=== PATIENT | female | born 1990 | race Caucasian/White ===

== ENCOUNTER 2019-01-09 04:48 | Emergency (ER) | payer SELFPAY ==
[2019-01-09] MEDS ORDERED: DEXAMETHASONE SOD PHOS INJ 10 MG/1 ML VIAL IM ONE (06:50)
--- NOTE | 2019-01-09 06:51 | ER Document Report ---
ED General - General Chief Complaint: Allergic Reaction Stated Complaint: RASH Time Seen by Provider: 01/09/19 06:32 Mode of Arrival: Ambulatory Notes: 28 year old with rash since earlier in Dec. Taking benadryl without relief. No fever or chills. No tick bite. H/o bad seasonal allergies and eczema and asthma. Asthma well controlled lately. TRAVEL OUTSIDE OF THE [place] IN LAST 30 DAYS: No - HPI Patient complains to provider of: rash Onset: Other - 2 weeks Quality of pain: No pain, Burning Severity: Moderate Pain Level: 2 Associated symptoms: Allergy/hay fever. denies: Earache, Fever, Headache, Sinus pain/drainage, Sore throat - Related Data Allergies/Adverse Reactions: Penicillins Allergy (Verified 01/09/19 04:50) Past Medical History - Social History Smoking Status: Current Every Day Smoker Family History: Reviewed & Not Pertinent Patient has suicidal ideation: No Patient has homicidal ideation: No Review of Systems - Review of Systems Constitutional: No symptoms reported EENT: No symptoms reported Cardiovascular: No symptoms reported Respiratory: No symptoms reported Gastrointestinal: No symptoms reported Genitourinary: No symptoms reported Female Genitourinary: No symptoms reported Musculoskeletal: No symptoms reported Skin: See HPI Hematologic/Lymphatic: No symptoms reported Neurological/Psychological: No symptoms reported Physical Exam - Vital signs Vitals: Temp Pulse Resp BP Pulse Ox 97.7 F 101 H 17 117/70 100 01/09/19 04:53 01/09/19 04:53 01/09/19 04:53 01/09/19 04:53 01/09/19 04:53 Interpretation: Normal - General General appearance: Appears well, Alert - HEENT Head: Normocephalic, Atraumatic Eyes: Normal Eyelashes: Other - crusting associated with seborhea Pupils: PERRL - Respiratory Respiratory status: No respiratory distress Chest status: Nontender Breath sounds: Normal Chest palpation: Normal - Cardiovascular Rhythm: Regular Heart sounds: Normal auscultation Murmur: No - Abdominal Inspection: Normal Distension: No distension Bowel sounds: Normal Tenderness: Nontender Organomegaly: No organomegaly - Back Back: Normal, Nontender - Extremities General upper extremity: Normal inspection, Nontender, Normal color, Normal ROM, Normal temperature General lower extremity: Normal inspection, Nontender, Normal color, Normal ROM, Normal temperature, Normal weight bearing. No: Saadia's sign - Neurological Neuro grossly intact: Yes Cognition: Normal Orientation: AAOx4 [place] Coma Scale Eye Opening: Spontaneous Ryann Coma Scale Verbal: Oriented [place] Coma Scale Motor: Obeys Commands [place] Coma Scale Total: 15 Speech: Normal Motor strength normal: LUE, RUE, LLE, RLE Sensory: Normal - Psychological Associated symptoms: Normal affect, Normal mood - Skin Skin Temperature: Warm Skin Moisture: Dry Skin Color: Erythema Location of irregularity: Face Character of irregularity: Symmetric, Patchy Course - Vital Signs Vital signs: Temp Pulse Resp BP Pulse Ox 97.8 F 87 18 125/57 L 98 01/09/19 07:27 01/09/19 07:27 01/09/19 07:27 01/09/19 07:27 01/09/19 07:27 Discharge - Discharge Clinical Impression: Eczema Condition: Good Disposition: HOME, SELF-CARE Instructions: Atopic Dermatitis (Eczema) ([facility]) Additional Instructions: Take the medicine as directed. See your doctor in follow up. Return here for fever chills or any problems or any concerns. Prescriptions: Hydroxyzine HCl [Atarax 10 mg Tablet] 10 mg PO TID PRN #30 tablet PRN Reason: Prednisone 10 mg PO 12 #1 tab.ds.pk
[2019-01-09 07:31] VITALS: BP 125/57
== END 2019-01-09 07:30 | disposition home or self-care (01) ==
LOC: ER 04:48
DX: L21.9 Seborrheic dermatitis, unspecified (principal); J45.909 Unspecified asthma, uncomplicated; F17.200 Nicotine dependence, unspecified, uncomplicated; Z88.0 Allergy status to penicillin
CPT/HCPCS: 99282; 96372; J1100

== ENCOUNTER 2019-04-10 20:14 | Emergency (ER) | payer SELFPAY ==
[2019-04-10 22:45] VITALS: BP 131/82
[2019-04-10] MEDS ORDERED: DEXAMETHASONE SOD PHOS INJ 10 MG/1 ML VIAL IM ONE (22:50)
[2019-04-10] MEDS ORDERED: HYDROXYZINE HCL 10 MG TABLET PO ONE (22:51)
--- NOTE | 2019-04-10 22:56 | ER Document Report ---
HPI - HPI Time Seen by Provider: 04/10/19 22:49 Pain Level: 2 Context: Patient is a 28-year-old female with a history of eczema who presents emergency department with eczema. Patient reports she has had eczema to her face for the past few days. Patient reports she attempted to use an [id number] medication that had oatmeal in it without relief. Patient reports she has not followed up with the underwriter mortgage loan but was seen here a few months ago for the same. Patient reports at that time she was giving a dose of steroids which did seem to help with her discomfort. Patient reports she is been under a lot of stress lately which she thinks may be eczema exacerbate. Patient also has a history of asthma. - REPRODUCTIVE Reproductive: DENIES: : Past Medical History - General Information source: Patient - Social History Smoking Status: Current Every Day Smoker Frequency of alcohol use: None Drug Abuse: None Lives with: Spouse/Significant other Family History: Reviewed & Not Pertinent Patient has suicidal ideation: No Patient has homicidal ideation: No - Past Medical History Cardiac Medical History: Reports: None Pulmonary Medical History: Reports: Hx Asthma EENT Medical History: Reports: None Neurological Medical History: Reports: None Endocrine Medical History: Reports: None Renal/ Medical History: Reports: None Malignancy Medical History: Reports: None GI Medical History: Reports: None Musculoskeletal Medical History: Reports None Skin Medical History: Reports Hx Eczema Psychiatric Medical History: Reports: None Traumatic Medical History: Reports: None Infectious Medical History: Reports: None Surgical Hx: Negative Vertical Provider Document - CONSTITUTIONAL Agree With Documented VS: Yes Exam Limitations: No Limitations General Appearance: No Apparent Distress - INFECTION CONTROL TRAVEL OUTSIDE OF THE [place] IN LAST 30 DAYS: No - HEENT HEENT: Atraumatic, Normal ENT Exam, Normocephalic, PERRLA Notes: Patient does have areas of erythema noted around the eyes. There is eyelash crusting with seborrhea. - NECK Neck: Normal Inspection - RESPIRATORY Respiratory: Breath Sounds Normal, No Respiratory Distress - CARDIOVASCULAR Cardiovascular: Regular Rate, Regular Rhythm - GI/ABDOMEN Gastrointestinal: Abdomen Soft, Abdomen Non-Tender, Normal Bowel Sounds - MUSCULOSKELETAL/EXTREMETIES Musculoskeletal/Extremeties: FROM, Non-Tender - NEURO Level of Consciousness: Awake, Alert, Appropriate - DERM Integumentary: Warm, Dry Course - Re-evaluation Re-evalutation: 04/10/19 23:00 We will treat the patient for her acute exacerbation of eczema. Ultimately the patient does need to follow-up with dermatology. I provided her with multiple referrals. Patient reports she does have insurance and will make a follow-up. Patient to return if symptoms worsen. - Vital Signs Vital signs: Temp Pulse Resp BP Pulse Ox 98.2 F 107 H 21 H 131/82 H 100 04/10/19 22:45 04/10/19 22:45 04/10/19 22:45 04/10/19 22:45 04/10/19 22:45 Discharge - Discharge Clinical Impression: Eczema Qualifiers: Eczema type: unspecified Qualified Code(s): L30.9 - Dermatitis, unspecified Condition: Stable Disposition: HOME, SELF-CARE Additional Instructions: Today using the emergency department for rash to the face. Your symptoms are consistent with eczema. I am placing you on oral steroids and Atarax which is an anti-itch medication. Atarax can make you drowsy so please be careful while on this medication. Ultimately you do need to follow-up with a underwriter mortgage loan who can control your eczema. Since this is located on your face we are limited as to what types of creams we can give you. Prescriptions: Hydroxyzine HCl [Atarax 10 mg Tablet] 10 mg PO TID PRN #15 tablet PRN Reason: Prednisone [Deltasone 10 mg Tablet] 10 mg PO ASDIR PRN #21 tablet PRN Reason: Referrals: TIESHA BOX MD [ACTIVE STAFF] - Follow up as needed DIANNA MONTES DE OCA DO [ACTIVE STAFF] - Follow up as needed
== END 2019-04-10 22:59 | disposition home or self-care (01) ==
LOC: ER 20:14
DX: L30.9 Dermatitis, unspecified (principal); F17.200 Nicotine dependence, unspecified, uncomplicated
CPT/HCPCS: 99282; 96372; J1100